=== PATIENT | male | born 1965 | race Caucasian/White ===

== ENCOUNTER 2022-12-21 10:19 | Emergency (ER) | payer MEDICARE ==
[~2022-12-21] VITALS: Ht 175.3 cm; Wt 178.0 kg
[2022-12-21 10:36] LABS: BASO% 0.5 % (0-3); EOS% 1.5 % (0-8); HEMATOCRIT 44.5 % (39.0-50.0); HEMOGLOBIN 14.7 g/dl (14.0-18.0); LYMPH% 22.5 % (15-41); MEAN CELL VOLUME 95.1 fL CALC (80.0-100.0); MEAN CORPUSCULAR HGB 31.4 pG CALC (26.0-32.0); MONO% 4.4 % (2-13); NEUT# 5.61 thou/uL (1.82-7.42); NEUT% 71.1 % (42-76); RED BLOOD COUNT 4.68 mill/uL (4.70-6.10); RED CELL DISTRI WIDTH 11.7 % (11.5-15.5)
[2022-12-21 10:48] LABS: ALBUMIN 4.8 g/dL (3.2-5.0); ALKALINE PHOSPHATASE 94 u/l (38-126); ANION GAP 12 (6-22 (CALC)); BILIRUBIN, TOTAL 0.7 mg/dL (0.0-1.4); BUN 16 mg/dL (9-20); BUN/CREATININE RATIO 15 (12-20 (CALC)); CARBON DIOXIDE 26 mmol/l (22-30); CHLORIDE 103 mmol/l (95-108); GFR FOR AFR.AMER. > 60 ML/MIN (>=60 (CALC)); GFR OTHER RACES > 60 ML/MIN (>=60 (CALC)); POTASSIUM 3.4 mmol/l (3.5-5.1); SGOT/AST 28 u/l (17-59); SODIUM 138 mmol/l (137-146); TOTAL PROTEIN 7.9 g/dL (6.3-8.2)
[2022-12-21 11:19] LABS: TSH, 3RD GENERATION 1.94 uIU/mL (0.47 - 4.68)
[2022-12-21 13:50] VITALS: BP 177/99
== END 2022-12-21 13:51 | disposition home or self-care (01) ==
LOC: ED 10:19
PROVIDERS: Family Medicine
DX: R00.2 Palpitations (principal); I10 Essential (primary) hypertension; E78.5 Hyperlipidemia, unspecified; Z20.822 Contact with and (suspected) exposure to COVID-19

== ENCOUNTER 2023-02-26 22:43 | Emergency (ER) | payer MEDICARE ==
[~2023-02-26] VITALS: Ht 177.8 cm; Wt 80.0 kg
[2023-02-27] VITALS: BP 126/81
[2023-02-27 00:15] VITALS: BP 111/80
[2023-02-27 00:20] LABS: BASO% 0.7 % (0-3); EOS% 3.4 % (0-8); HEMATOCRIT 39.4 % (39.0-50.0); HEMOGLOBIN 12.9 g/dl (14.0-18.0); IMMATURE GRANULOCYTES 0.2 % (0.0-5.0); LYMPH% 34.5 % (15-41); MEAN CELL VOLUME 95.2 fL CALC (80.0-100.0); MEAN CORPUSCULAR HGB 31.2 pG CALC (26.0-32.0); MEAN CORPUSCULAR HGB CONC 32.7 g/dL CAL (32.0-36.0); MONO% 5.6 % (2-13); NEUT# 3.39 thou/uL (1.82-7.42); NEUT% 55.6 % (42-76); RED BLOOD COUNT 4.14 mill/uL (4.70-6.10); RED CELL DISTRI WIDTH 13.2 % (11.5-15.5)
[2023-02-27 00:30] VITALS: BP 128/74
[2023-02-27 00:34] LABS: ALBUMIN 4.4 g/dL (3.2-5.0); ANION GAP 14 (6-22 (CALC)); BUN 28 mg/dL (9-20); BUN/CREATININE RATIO 23 (12-20 (CALC)); CARBON DIOXIDE 27 mmol/l (22-30); CHLORIDE 103 mmol/l (95-108); CREATININE 1.2 mg/dL (0.7-1.3); GFR FOR AFR.AMER. > 60 ML/MIN (>=60 (CALC)); GFR OTHER RACES > 60 ML/MIN (>=60 (CALC)); POTASSIUM 3.6 mmol/l (3.5-5.1); SGOT/AST 27 u/l (17-59); SODIUM 140 mmol/l (137-146); TOTAL PROTEIN 7.2 g/dL (6.3-8.2)
[2023-02-27 00:35] LABS: ALKALINE PHOSPHATASE 75 u/l (38-126)
[2023-02-27 00:38] LABS: BILIRUBIN, TOTAL 0.2 mg/dL (0.2-1.3)
[2023-02-27 00:45] VITALS: BP 110/74
[2023-02-27] MEDS ORDERED: KEFLEX500 MG PO (01:36)
[2023-02-27 02:15] VITALS: BP 110/74
== END 2023-02-27 02:15 | disposition home or self-care (01) ==
LOC: ED 22:43
PROVIDERS: Emergency Medicine
DX: S70.361A Insect bite (nonvenomous), right thigh, initial encounter (principal); I88.9 Nonspecific lymphadenitis, unspecified; I10 Essential (primary) hypertension; F17.200 Nicotine dependence, unspecified, uncomplicated; W57.XXXA Bitten or stung by nonvenomous insect and other nonvenomous arthropods, initial encounter; M79.89 Other specified soft tissue disorders